=== PATIENT | male | born 1980 | race Caucasian/White ===

== ENCOUNTER 2017-11-28 09:57 | Day surgery (SDC) | payer OTHER ==
[2017-11-28] MEDS: NS 1,000 ML IV (10:15)
[2017-11-28] MEDS ORDERED: PROPOFOL 500 MG/50 ML VIAL As Ordered (11:17)
[2017-11-28] MEDS ORDERED: LIDOCAINE 2% INJ 100 MG/5 ML SDV (FOR ANES.) As Ordered (11:17)
== END 2017-11-28 12:35 | disposition home or self-care (01) ==
LOC: M OPP 09:57
DX: D12.2 Benign neoplasm of ascending colon (principal); K92.1 Melena; K42.9 Umbilical hernia without obstruction or gangrene; F41.9 Anxiety disorder, unspecified; Z87.891 Personal history of nicotine dependence; Z88.0 Allergy status to penicillin; Z91.018 Allergy to other foods; Z80.0 Family history of malignant neoplasm of digestive organs
CPT/HCPCS: 45385